=== PATIENT | female | born 1990 | race Two or more races ===

== ENCOUNTER 2019-02-22 03:16 | Emergency (ER) | payer SELFPAY ==
[~2019-02-22] VITALS: Ht 162.6 cm; Wt 68.0 kg
[2019-02-22 04:54] VITALS: BP 110/64
== END 2019-02-22 05:40 | disposition home or self-care (01) ==
LOC: ER 03:16
DX: F10.129 Alcohol abuse with intoxication, unspecified (principal); K29.00 Acute gastritis without bleeding; Y90.9 Presence of alcohol in blood, level not specified
CPT/HCPCS: 81025; 99283